=== PATIENT | female | born 1950 | race Caucasian/White ===

== ENCOUNTER 2023-04-17 07:17 | Emergency (ER) | payer MEDICARE, SELFPAY ==
--- NOTE | ~2023-04-17 | XR_ITS ---
XR hand LT min 3V DATE: 04/17/2023 08:23 INDICATION: Pain and swelling. No injury. TECHNIQUE: 3 views COMPARISON: None FINDINGS: There is joint space narrowing and spurring at the first carpometacarpal joint consistent w ith osteoarthritis. No fracture or dislocation, periosteal reaction or bone destruction, erosive change or chondrocalcino sis. IMPRESSION: Osteoarthritis at first carpometacarpal joint Reviewed, dictated and finalized at location A.
[2023-04-17 07:17] VITALS: BP 151/73; PULSE 82; RESP 18; TEMP 36.8; O2SAT 100
--- NOTE | 2023-04-17 07:42 | ED.GENADULT ---
HPI - General Adult General Chief complaint: Extremity Injury, Upper Stated complaint: left hand pain Time Seen by Provider: 04/17/23 07:37 Source: patient Mode of arrival: ambulatory Limitations: no limitations History of Present Illness HPI narrative: 73 years old white female drove herself to the emergency room because of pain at the left hand mainly at the stump area started 2 days ago. Patient is telling me that she have OCD and does not stop cleaning and vacuuming and lifting window up and down and moving groceries bags to the car and out of the car. And that is what she does normally. Possible pulled some muscles in her left hand. She denies any specific trauma, no fever, no chills and no nausea no vomiting no history of similar symptoms. Related Data Allergies Allergy/AdvReac Type Severity Reaction Status Date / Time No Known Allergies Allergy Mild Verified 04/17/23 07:24 Review of Systems Review of Systems: All systems reviewed & are unremarkable except as noted in HPI and below PMFSH Family History Family History Father Family history of pancreatic cancer Social History Social History Smoking status: Never smoker Alcohol intake: current Exam Narrative: General appearance: Well-developed, well-nourished Skin: Normal color Head: Normocephalic, nontraumatic Eyes: Clear conjunctiva ENT: Oropharynx normal, ears normal, nose normal Neck: Supple, nontender Chest and respiratory: Airway patent, no respiratory distress, no accessory muscle use Heart: Regular rate/rhythm Abdomen: Soft, nontender, no organomegaly, quiet bowel sounds Vascular: Normal peripheral pulses, normal capillary refill. Musculoskeletal: Left hand showed diffuse tenderness at the hypothenar area with slightly swollen, and limited range of motion of the left thumb because of pain. No erythema, slightly warm to touch Neurologic: Alert and oriented ?3, IMAGE ARCHIVIST is normal as tested, no gross motor deficit Course Vital Signs Vital signs: Vital Signs Temperature 36.8 C 04/17/23 07:17 Pulse Rate 82 04/17/23 07:17 Respiratory Rate 18 04/17/23 07:17 Blood Pressure 151/73 H 04/17/23 07:17 Pulse Oximetry 100 04/17/23 07:17 Oxygen Delivery Room Air 04/17/23 07:17 Temperature 36.8 C 04/17/23 07:17 Pulse Rate 82 04/17/23 07:17 Respiratory Rate 18 04/17/23 07:17 Blood Pressure 151/73 H 04/17/23 07:17 Pulse Oximetry 100 04/17/23 07:17 Oxygen Delivery Room Air 04/17/23 07:17 Medical Decision Making MDM Narrative Medical decision making narrative: Left hand pain mainly at the left thumb area. No specific trauma, muscular strain/sprain, tendinitis is my concern versus arthritis. No signs of infection at this time, x-ray left hand ordered to rule out the possibility of potential fracture. And showed osteoarthritis at first carpometacarpal joint which is consistent with patient presentation t. I plan to discharge patient on diclofenac and follow-up with family physician in 3 to 5 days for further evaluation. Differential Diagnosis Differential Diagnosis: Sprain/strain/tendinitis/fracture/arthritis Vital Signs Vital Signs: Vital Signs Temperature 36.8 C 04/17/23 07:17 Pulse Rate 82 04/17/23 07:17 Respiratory Rate 18 04/17/23 07:17 Blood Pressure 151/73 H 04/17/23 07:17 Pulse Oximetry 100 04/17/23 07:17 Oxygen Delivery Room Air 04/17/23 07:17 Temperature 36.8 C 04/17/23 07:17 Pulse Rate 82 04/17/23 07:17 Respiratory Rate 18 04/17/23 07:17 Blood Pressure 151/73 H 04/17/23 07:17 Pu
== END 2023-04-17 09:17 | disposition home or self-care (01) ==
PROVIDERS: Emergency Provider Emergency Medicine; PCP Nurse Practitioner Family
DX: M19.042 Primary osteoarthritis, left hand (principal); M79.642 Pain in left hand
CPT/HCPCS: 73130; 99283

== ENCOUNTER 2023-12-07 06:19 | Emergency (ER) | payer MEDICARE, SELFPAY ==
--- NOTE | ~2023-12-07 | XR_ITS ---
EXAMINATION: XR hip LT 2V w AP pelvis DATE: 12/07/2023 08:50 INDICATION: Anterior left hip pain. TECHNIQUE: An anteroposterior view of the pelvis and 2 views of left hip were obtained. COMPARISON: Pelvis radiograph 09/29/2006, CT abdomen and pelvis 01/10/2017 FINDINGS: Bone alignment is normal. No fracture. Osteitis pubis is noted. There is moderate osteoarth ritis of the hips. There is severe lumbar spondylosis. IMPRESSION: 1. Moderate osteoarthritis of the hips. Reviewed, dictated and finalized at location A.
--- NOTE | ~2023-12-07 | CT_ITS ---
EXAMINATION: CT pelvis wo con DATE: 12/07/2023 09:52 INDICATION: Left hip pain. TECHNIQUE: Computed tomography (CT) of the pelvis was performed without intravenous contrast. Automat ed exposure control and iterative reconstruction technique were employed. The dose-length product was 365.20 mGy-cm. COMPARISON: CT abdomen and pelvis 01/10/2017 FINDINGS: There is diverticulosis of the colon without evidence of diverticulitis. There are calcifie d fibroids in the uterus. Bone alignment is normal. No fracture. There is mild osteoarthritis of the sacroiliac joints. There is moderate osteoarthritis of the hip joints. Osteitis pubis is noted. There is severe lumbar spondylosis. IMPRESSION: 1. No fracture. 2. Moderate osteoarthritis of the hip joints. Reviewed, dictated and finalized at location A.
[2023-12-07 06:27] VITALS: BP 156/85; PULSE 82; RESP 18; TEMP 36.4; O2SAT 100
--- NOTE | 2023-12-07 08:07 | ED.GENADULT ---
HPI - General Adult General Chief complaint: Extremity Injury, Lower Stated complaint: left leg pain, jumped out of lifted truck Time Seen by Provider: 12/07/23 06:57 History of Present Illness HPI narrative: 73-year-old female present to the emergency department for evaluation of left hip pain. Patient states yesterday she got out of a lifted truck that was high off the ground and this is unusual for her. Patient denied any immediate pain or injury. Patient states she was able to continue with activities of her evening but after sitting and resting she went to stand up and had onset of left hip pain. Patient states that she did take some methocarbamol but this did not help her symptoms. Patient had tramadol but did not take it. Related Data Allergies Allergy/AdvReac Type Severity Reaction Status Date / Time No Known Allergies Allergy Mild Verified 12/07/23 06:27 Review of Systems Review of Systems: All systems reviewed & are unremarkable except as noted in HPI and below PMFSH Family History Family History Father Family history of pancreatic cancer Social History Social History Smoking status: Never smoker Alcohol intake: current Exam Narrative: APPEARANCE: Well appearing, no pain, no distress, well-nourished. HEAD: normocephalic, atraumatic. EYES: PERRLA/EOMI, conjunctivae clear. NECK: Supple. No adenopathy, no masses. RESPIRATORY: Airway patent, respirations nonlabored. Clear to auscultation bilaterally, no rales, rhonchi, wheezing. CARDIOVASCULAR: Regular rate and rhythm without murmurs rubs or gallops. ABDOMINAL: Soft, nontender, nondistended, normal bowel sounds MUSCULOSKELETAL: Left hip tenderness to palpation with decreased range of motion, NEURO: Alert. Cranial nerves II through XII intact. Grossly intact SKIN: Warm, dry. Normal Color Course Vital Signs Vital signs: Vital Signs Temperature 97.6 F 12/07/23 06:27 Pulse Rate 82 12/07/23 06:27 Respiratory Rate 18 12/07/23 06:27 Blood Pressure 156/85 H 12/07/23 06:27 Pulse Oximetry 100 12/07/23 06:27 Temperature 97.6 F 12/07/23 06:27 Pulse Rate 80 05/08/24 11:30 Respiratory Rate 16 12/07/23 11:30 Blood Pressure 150/80 H 12/07/23 11:30 Pulse Oximetry 98 12/07/23 11:30 Medical Decision Making [facility] Narrative Medical decision making narrative: 73-year-old female presenting to the emergency department for evaluation of left hip strain and pain with increased pain with ambulation. Patient was treated with Endeavor and cyclobenzaprine and did have some improvement of her symptoms but was still having pain with ambulation. X-rays were negative. Due to patient's persistent symptoms a CT scan was ordered all showed no acute fracture dislocation. Patient was updated on the results of her workup patient was comfortable with plan for discharge and close follow-up. Patient was provided additional tramadol and Norflex for home. Patient does report that she used the left leg to step up into the high truck and I suspect that she injured her leg getting into the trach rather than getting out of the truck. Differential Diagnosis Differential Diagnosis: Left hip strain, left hip fracture, muscular strain Vital Signs Vital Signs: Vital Signs Temperature 97.6 F 12/07/23 06:27 Pulse Rate 82 12/07/23 06:27 Respiratory Rate 18 12/07/23 06:27 Blood Pressure 156/85 H 12/07/23 06:27 Pulse Oximetry 100 12/07/23 06:27 Temperature 97.6 F 12/07/23 06:27 Pulse Rate 80 12/07/23 11:30 Respiratory Rate 16 12/07/23 11:30 Blood Pressure 150/80 H 12/07/23 11:30 Pulse Oximetry 98 12/07/23 11:30 Imaging Data Radiologist's impression: Impressions Hip/Pelvis X-Ray 12/07/23 08:57 IMPRESSION: 1. Moderate osteoarthritis of the hips. Pelvis CT 12/07/23 09:57 IMPRESSION: 1. No fracture
[2023-12-07] MEDS: CYCLOBENZAPRINE HCL 10 MG TABLET PO (08:36)
[2023-12-07] MEDS: HYDROcodone/acetaminophen (*CRX) 5-325 MG TABLET 1 TAB PO (08:37)
[2023-12-07 11:30] VITALS: BP 150/80; PULSE 80; RESP 16; O2SAT 98
== END 2023-12-07 11:30 | disposition home or self-care (01) ==
PROVIDERS: Emergency Provider Emergency Medicine; PCP Nurse Practitioner Family
DX: S76.012A Strain of muscle, fascia and tendon of left hip, initial encounter (principal); M16.0 Bilateral primary osteoarthritis of hip; X58.XXXA Exposure to other specified factors, initial encounter
CPT/HCPCS: 72192; 73502; 99284; A9270